=== PATIENT | male | born 1975 | race Caucasian/White ===

== ENCOUNTER 2021-05-09 15:20 | Inpatient (IN) | payer OTHER, SELFPAY ==
[2021-05-09] MEDS ORDERED: Morphine 10 MG/ML VIAL ONE (16:26)
[2021-05-09] MEDS ORDERED: Ondansetron PF 4 MG/2 ML Vial ONE (16:27)
[2021-05-09] MEDS ORDERED: Morphine 4 MG/ML VIAL ONE ×2 (16:27→21:19)
[2021-05-09] MEDS ORDERED: Fentanyl 100 MCG/2 ML VIAL ONE (17:20)
[2021-05-09] MEDS ORDERED: Acetaminophen 500 MG TAB ONE (20:08)
[2021-05-09] MEDS ORDERED: Ketorolac Tromethamine 30 MG/ML VIAL ONE (20:08)
[2021-05-09 23:28] VITALS: BMI 33.2
[2021-05-10] MEDS ORDERED: Ondansetron PF 4 MG/2 ML Vial IVP PRN (04:17)
[2021-05-10] MEDS ORDERED: Acetaminophen 325 MG TAB PO PRN (04:17)
[2021-05-10] MEDS: Ketorolac Tromethamine 30 MG/ML VIAL IVP PRN ×3 (04:37→18:19)
[2021-05-10 06:08] LABS: #Basophils 0.1 thou/uL (0.0-0.2); #Eosinphils 0.3 thou/uL (0.0-0.7); #Lymphocytes 2.9 thou/uL (1.20-3.40); #Monocytes 0.9 thou/uL (0.11-0.59); #Neutrophils 6.1 thou/uL (1.40-6.50); %Basophils 0.9 % (0.0-1.0); %Eosinophils 2.8 % (0.0-10.0); %Lymphocytes 28.4 % (21.0-51.0); %Monocytes 8.3 % (0.0-10.0); %Neutrophils 59.5 % (42.0-75.0); Hemoglobin 15.8 g/dL (14.0-18.0); Mean Corpuscular HGB CONC 35.6 g/dL (32.0-36.0); Mean Corpuscular Hemoglobin 35.3 pg (27.0-31.0); Mean Corpuscular Volume 98.9 fL (78.0-98.0); Mean Platelet Volume 7.7 fL (7.4-10.4); Platelet Count 239 thou/uL (130-400); Red Blood Cell (RBC) Count 4.47 mill/uL (4.70-6.10); White Blood Cell (WBC) Count 10.2 thou/uL (4.8-10.8)
[2021-05-10 06:26] LABS: Anion Gap 13 mmol/L (10-20); BUN (Urea Nitrogen) 12 mg/dL (8.9-20.6); Calc. Creatinine Clearance 181 mL/min (70-130); Calcium 8.3 mg/dL (7.8-10.44); Carbon Dioxide 22 mmol/L (22-29); Chloride 106 mmol/L (98-107); Glucose 99 mg/dL (70-105); Sodium 137 mmol/L (136-145)
[2021-05-10 11:27] LABS: SARS-CoV-2 PCR by NAA Not Detected (NotDetected)
[2021-05-10] MEDS: HYDROcodone/Acetaminophen 10/325 mg Tablet PO PRN (13:01)
[2021-05-11] MEDS: Ketorolac Tromethamine 30 MG/ML VIAL IVP PRN (02:16)
[2021-05-11] MEDS: HYDROcodone/Acetaminophen 10/325 mg Tablet PO PRN ×3 (03:05→12:12)
[2021-05-11] MEDS ORDERED: Lidocaine 2% PF 5 ML VIAL ONE (11:51)
[2021-05-11] MEDS ORDERED: Iopamidol-M 300 61% 15 ML VIAL ONE (11:51)
[2021-05-11] MEDS ORDERED: Sodium Chloride 0.9% (PF) 10 ML VIAL ONE (11:51)
[2021-05-11] MEDS ORDERED: Bupivacaine 0.25% 10 ML VIAL ONE (11:51)
[2021-05-11 15:50] VITALS: BP 136/82; TEMP 97.5
== END 2021-05-11 15:46 | disposition home health service (06) | DRG 552 ==
LOC: ERS 15:20 → T4-A 21:34 → 2NO 05-10 13:29 → OBSVTOIN 05-11 10:31
PROVIDERS: ADMIT Internal Medicine; ATTEND Internal Medicine
PROC: 3E0R33Z Introduction of Anti-inflammatory into Spinal Canal, Percutaneous Approach (ICD-10-PCS; principal; 2021-05-11)
PROC: 00HU33Z Insertion of Infusion Device into Spinal Canal, Percutaneous Approach (ICD-10-PCS; 2021-05-11)
PROC: BR191ZZ Fluoroscopy of Lumbar Spine using Low Osmolar Contrast (ICD-10-PCS; 2021-05-11)
DX: M47.817 Spondylosis without myelopathy or radiculopathy, lumbosacral region (principal); F17.210 Nicotine dependence, cigarettes, uncomplicated; G89.29 Other chronic pain; M25.562 Pain in left knee; M48.07 Spinal stenosis, lumbosacral region; Z88.8 Allergy status to other drugs, medicaments and biological substances; Z79.899 Other long term (current) drug therapy
CPT/HCPCS: 36415; 72148; 80048; 85025; 86141; 93005; 93306; 96374; 96375; 96376; J1885; J2270; J2405; J3010; U0003; U0005

== ENCOUNTER 2021-06-12 15:02 | Observation (INO) | payer OTHER ==
[2021-06-12 16:12] LABS: #Basophils 0.1 thou/uL (0.0-0.2); #Eosinphils 0.2 thou/uL (0.0-0.7); #Lymphocytes 2.3 thou/uL (1.20-3.40); #Monocytes 0.6 thou/uL (0.11-0.59); #Neutrophils 6.5 thou/uL (1.40-6.50); %Basophils 0.6 % (0.0-1.0); %Eosinophils 2.4 % (0.0-10.0); %Lymphocytes 23.5 % (21.0-51.0); %Monocytes 6.4 % (0.0-10.0); Mean Corpuscular HGB CONC 32.2 g/dL (32.0-36.0); Mean Corpuscular Hemoglobin 32.1 pg (27.0-31.0); Mean Corpuscular Volume 99.6 fL (78.0-98.0); Mean Platelet Volume 8.2 fL (7.4-10.4); Platelet Count 264 thou/uL (130-400); White Blood Cell (WBC) Count 9.6 thou/uL (4.8-10.8)
[2021-06-12] MEDS ORDERED: Iopamidol-370 76% 500 ML 1 ML ONE (16:26)
[2021-06-12 16:33] LABS: ALT (SGPT) 39 U/L (8-55); AST (SGOT) 23 U/L (5-34); Albumin 4.5 g/dL (3.5-5.0); Alkaline Phosphatase 81 U/L (40-110); Anion Gap 10 mmol/L (10-20); BUN (Urea Nitrogen) 10 mg/dL (8.9-20.6); Bilirubin, Total 0.4 mg/dL (0.2-1.2); Calc. Creatinine Clearance 0 mL/min (70-130); Calcium 9.4 mg/dL (7.8-10.44); Carbon Dioxide 29 mmol/L (22-29); Chloride 105 mmol/L (98-107); Globulin 3.3 g/dL (2.4-3.5); Glucose 95 mg/dL (70-105); Lipase 28 U/L (8-78); Magnesium 2.3 mg/dL (1.6-2.6); Potassium 4.2 mmol/L (3.5-5.1); Protein, Total 7.8 g/dL (6.0-8.3); Sodium 140 mmol/L (136-145)
[2021-06-12] MEDS ORDERED: Aspirin Chewable 81 MG TAB ONE ×2 (17:27→17:29)
[2021-06-12 20:30] LABS: SARS-CoV-2 NAA Rapid Test Not Detected (NotDetected)
[2021-06-12] MEDS ORDERED: Nitroglycerin 0.4 MG TAB (25 Tab Bottle) SL PRN (22:39)
[2021-06-12] MEDS ORDERED: Acetaminophen 325 MG TAB PO PRN (22:39)
[2021-06-12] MEDS ORDERED: Ondansetron PF 4 MG/2 ML Vial IVP PRN (22:39)
[2021-06-12] MEDS ORDERED: Acetaminophen 650 MG Suppository PR PRN (22:39)
[2021-06-12] MEDS ORDERED: Ondansetron ODT 4 MG TAB PO PRN (22:39)
[2021-06-12] MEDS ORDERED: hydrALAZINE 20 MG/ML VIAL SLOW IVP PRN (22:39)
[2021-06-12 23:25] VITALS: BMI 32.5
[2021-06-13 05:33] LABS: #Basophils 0.1 thou/uL (0.0-0.2); #Eosinphils 0.4 thou/uL (0.0-0.7); #Lymphocytes 2.4 thou/uL (1.20-3.40); #Monocytes 0.7 thou/uL (0.11-0.59); #Neutrophils 5.1 thou/uL (1.40-6.50); %Basophils 0.9 % (0.0-1.0); %Eosinophils 4.1 % (0.0-10.0); %Monocytes 8.1 % (0.0-10.0); Hemoglobin 15.6 g/dL (14.0-18.0); Mean Corpuscular HGB CONC 33.6 g/dL (32.0-36.0); Mean Corpuscular Hemoglobin 33.6 pg (27.0-31.0); Mean Platelet Volume 7.8 fL (7.4-10.4); Platelet Count 235 thou/uL (130-400); Red Blood Cell (RBC) Count 4.64 mill/uL (4.70-6.10); White Blood Cell (WBC) Count 8.6 thou/uL (4.8-10.8)
[2021-06-13 05:57] LABS: Anion Gap 7 mmol/L (10-20); BUN (Urea Nitrogen) 10 mg/dL (8.9-20.6); Calc. Creatinine Clearance 171 mL/min (70-130); Calcium 8.8 mg/dL (7.8-10.44); Carbon Dioxide 29 mmol/L (22-29); Cardiac Risk 6.6 (Less than 4.5); Chloride 105 mmol/L (98-107); Cholesterol 239 mg/dl (< 200 Desired); Glucose 97 mg/dL (70-105); HDL Cholesterol 36 mg/dL (>60 Neg Risk); LDL Cholesterol, Calculated 177 mg/dL; Sodium 137 mmol/L (136-145); Triglycerides 129 mg/dL (Less than 150)
[2021-06-13 08:05] LABS: Troponin I Less than 0.010 ng/mL (< 0.028)
[2021-06-13] MEDS ORDERED: Regadenoson 0.4 MG/5 ML SYRINGE ONE (08:50)
[2021-06-13] MEDS: Aspirin 81 mg Enteric Coated Tablet PO SCH (08:55)
[2021-06-13] MEDS ORDERED: Enoxaparin Sodium 40 MG/0.4 ML SYRINGE SC SCH (09:00)
[2021-06-13] MEDS ORDERED: Morphine 2 MG/ML VIAL SLOW IVP SCH (12:50)
[2021-06-13 13:28] LABS: Troponin I Less than 0.010 ng/mL (< 0.028)
[2021-06-13] MEDS ORDERED: Communication Order-Pharmacy FS SCH (18:00)
[2021-06-13] MEDS ORDERED: Atorvastatin Calcium 40 MG TAB PO SCH (21:00)
[2021-06-14] MEDS: Sodium Chloride 0.9% 1,000 ML IV SCH ×2 (05:40→15:47)
[2021-06-14] MEDS: Aspirin 81 mg Enteric Coated Tablet PO SCH (05:40)
[2021-06-14 08:23] VITALS: TEMP 98
[2021-06-14] MEDS ORDERED: Iopamidol 370 76% 100 ML VIAL ONE (08:48)
[2021-06-14] MEDS ORDERED: Lidocaine 1% (PF) 30 ML VIAL ONE (13:07)
[2021-06-14] MEDS ORDERED: Midazolam HCl 2 mg/2 ml Vial ONE (13:43)
[2021-06-14] MEDS ORDERED: Fentanyl 100 MCG/2 ML VIAL ONE (13:44)
[2021-06-14] MEDS ORDERED: Nitroglycerin 0.4 MG TAB (25 Tab Bottle) SL PRN (14:32)
[2021-06-14] MEDS ORDERED: Acetaminophen/Codeine 30-300mg Tablet PO PRN ×2 (14:32)
[2021-06-14] MEDS ORDERED: Sodium Chloride 0.9% 200 ML IV PRN (14:32)
[2021-06-14 15:08] VITALS: BP 151/88
[2021-06-15] MEDS ORDERED: Clopidogrel Bisulfate 75 MG TAB PO SCH (09:00)
== END 2021-06-14 19:19 | disposition home or self-care (01) ==
LOC: ERS 15:02 → ERHOLD 18:29 → 2SE 06-13 01:53
PROVIDERS: ADMIT Internal Medicine; ATTEND Internal Medicine
PROC: 4A023N7 Measurement of Cardiac Sampling and Pressure, Left Heart, Percutaneous Approach (ICD-10-PCS; principal; 2021-06-14)
PROC: B2111ZZ Fluoroscopy of Multiple Coronary Arteries using Low Osmolar Contrast (ICD-10-PCS; 2021-06-14)
PROC: B2151ZZ Fluoroscopy of Left Heart using Low Osmolar Contrast (ICD-10-PCS; 2021-06-14)
DX: R07.89 Other chest pain (principal); R20.2 Paresthesia of skin; R00.1 Bradycardia, unspecified; R29.810 Facial weakness; I10 Essential (primary) hypertension; E78.00 Pure hypercholesterolemia, unspecified; E78.5 Hyperlipidemia, unspecified; Q21.9 Congenital malformation of cardiac septum, unspecified; M40.56 Lordosis, unspecified, lumbar region; F17.210 Nicotine dependence, cigarettes, uncomplicated; Z20.822 Contact with and (suspected) exposure to COVID-19; Z88.5 Allergy status to narcotic agent; Z79.82 Long term (current) use of aspirin; Z79.899 Other long term (current) drug therapy; Z88.8 Allergy status to other drugs, medicaments and biological substances
CPT/HCPCS: 0240U; 36415; 36416; 70496; 70498; 71045; 76942; 78452; 80048; 80053; 80061; 83690; 83735; 83880; 84484; 85025; 93005; 93010; 93017; 93458; 96372; 96374; A9500; G0378; J1650; J2001; J2250; J2270; J2785; J3010; Q9967